=== PATIENT | male | born 1985 | race Two or more races ===

== ENCOUNTER 2021-05-13 09:46 | Outpatient (RCR) | payer OTHER, SELFPAY ==
--- NOTE | ~2021-05-13 | XR_ITS ---
EXAMINATION: XR CHEST 2 VIEWS CLINICAL INFORMATION: Preprocedure examination. COMPARISON: None. TECHNIQUE: Frontal and lateral views of the chest were obtained. FINDINGS: The heart, great vessels, pulmonary vasculature and mediastinum are normal. The lungs show no focal infiltrate, effusion or pneumothorax. There is no acute osseous abnormality. XR/XR chest 2V IMPRESSION: No active cardiopulmonary disease.
[2021-05-16 10:32] LABS: MANUAL DIFF FLAG NO
[2021-05-16 11:10] LABS: Basophils Absolute Auto 0.1 X10*3/uL (0.0-0.2); Basophils Percent Auto 0.9 % (0-2); Eosinophils Absolute Auto 0.4 X10*3/uL (0.0-0.4); Eosinophils Percent Auto 5.7 % (0-4); Hematocrit 37.5 % (42.0-52.0); Hemoglobin 12.7 g/dl (14.0-18.0); Imm Gran Abs Auto 0.05 X10*3/uL (0.00-0.03); Imm Gran Pct Auto 0.6 % (0.0-0.4); Lymphocytes Absolute Auto 2.5 X10*3/uL (1.2-4.9); Lymphocytes Percent Auto 31.7 % (20-40); Mean Corpuscular HGB Conc 33.9 g/dl (31.0-36.0); Mean Corpuscular Hemoglobin 30.3 pg (27.0-33.0); Mean Corpuscular Volume 89.5 fL (80.0-98.0); Mean Platelet Volume 12.6 fL (9.4-12.4); Monocytes Absolute Auto 0.5 X10*3/uL (0.1-1.2); Neutrophils Absolute Auto 4.2 x10*3/uL (2.0-8.3); Neutrophils Percent Auto 54.1 % (45-73); Platelet Count 220 X10*3/uL (160-400); Red Blood Count 4.19 X10*6/uL (4.60-5.80); White Blood Count 7.8 X10*3/uL (4.8-10.8)
[2021-05-16 11:28] LABS: Estimated Average Glucose 169 mg/dL; Hemoglobin A1c % 7.5 %
[2021-05-16 12:19] LABS: Erythrocyte Sedimentation Rate 11 MM/HR (0-15)
[2021-05-16 12:31] LABS: Anion Gap 16 (12-20); Blood Urea Nitrogen 31 mg/dL (9-16); C Reactive Protein 0.19 mg/dL (< or = 0.50); Carbon Dioxide 24 mmol/L (22-29); Chloride 103 mmol/L (96-108); Estimated Glomerular Filt Rate 42; Glucose Random 274 mg/dL (60-115); Potassium 5.6 mmol/L (3.3-5.1); Sodium 137 mmol/L (135-145)
== END 2021-06-14 16:04 | disposition home or self-care (01) ==
LOC: HO.WCC 09:46
PROVIDERS: PCP Nurse Practitioner Family; Visit Provider Physician Assistant
DX: E11.621 Type 2 diabetes mellitus with foot ulcer (principal); L97.512 Non-pressure chronic ulcer of other part of right foot with fat layer exposed; E11.65 Type 2 diabetes mellitus with hyperglycemia; E11.69 Type 2 diabetes mellitus with other specified complication; M86.471 Chronic osteomyelitis with draining sinus, right ankle and foot; L84 Corns and callosities; Z79.4 Long term (current) use of insulin
CPT/HCPCS: 11042; 36415; 71046; 80048; 83036; 84134; 85025; 85652; 86140; 99212; 99213

== ENCOUNTER 2022-01-10 10:59 | Outpatient (RCR) | payer OTHER, SELFPAY | END 2022-03-27 16:00 | disposition home or self-care (01) | LOC: HO.WCC 10:59 | PROVIDERS: PCP Nurse Practitioner Family; Visit Provider Physician Assistant | DX: E11.621 Type 2 diabetes mellitus with foot ulcer (principal); L97.412 Non-pressure chronic ulcer of right heel and midfoot with fat layer exposed; L97.512 Non-pressure chronic ulcer of other part of right foot with fat layer exposed | CPT/HCPCS: 11042; 15275; 16020; 16025; 99212; Q4186 ==

== ENCOUNTER 2022-05-19 07:56 | Outpatient (RCR) | payer OTHER, SELFPAY | END 2022-06-30 16:00 | disposition home or self-care (01) | LOC: HO.WCC 07:56 | PROVIDERS: PCP Nurse Practitioner Family; Visit Provider Physician Assistant | DX: Z09 Encounter for follow-up examination after completed treatment for conditions other than malignant neoplasm (principal); E11.22 Type 2 diabetes mellitus with diabetic chronic kidney disease; N18.9 Chronic kidney disease, unspecified; F12.90 Cannabis use, unspecified, uncomplicated; Z86.31 Personal history of diabetic foot ulcer | CPT/HCPCS: 11042; 99212 ==

== ENCOUNTER 2022-05-29 10:00 | Outpatient (RCR) | payer OTHER, SELFPAY | END 2022-06-12 13:51 | disposition home or self-care (01) | LOC: HO.PT 10:00 | PROVIDERS: PCP Nurse Practitioner Family; Visit Provider Nurse Practitioner Family | DX: M54.50 Low back pain, unspecified (principal) | CPT/HCPCS: 97110; 97162; 97530 ==

== ENCOUNTER 2022-10-29 14:07 | Outpatient (RCR) | payer OTHER, SELFPAY ==
--- NOTE | ~2022-10-29 | XR_ITS ---
EXAMINATION: XR FOOT, RIGHT CLINICAL INFORMATION: Great toe swelling. COMPARISON: None available. TECHNIQUE: AP, lateral, and oblique views of the right foot. FINDINGS: A comminuted, displaced fracture is seen of the shaft of the right great toe. There appears to be extension of the fracture pattern at the articular surface of the head of the proximal phalanx. There is adjacent soft tissue swelling No dislocation is seen. Boehler's angle is normal. There is no calcaneal spur. There are atherosclerotic calcifications. No focal soft tissue gas or foreign body is seen. XR/XR foot RT min 3V IMPRESSION: A comminuted fracture is noted of the shaft and head of the proximal phalanx of the right great toe, with fracture line extension into the articular surface at the interphalangeal joint. There is adjacent soft tissue swelling. A preliminary report was provided by the [facility] on 01/22/2023.
== END 2023-09-14 13:50 | disposition home or self-care (01) ==
LOC: HO.WCC 14:07
PROVIDERS: PCP Nurse Practitioner Family; Visit Provider Surgery
DX: E11.621 Type 2 diabetes mellitus with foot ulcer (principal); L97.522 Non-pressure chronic ulcer of other part of left foot with fat layer exposed; S91.104D Unspecified open wound of right lesser toe(s) without damage to nail, subsequent encounter; E11.22 Type 2 diabetes mellitus with diabetic chronic kidney disease; N18.9 Chronic kidney disease, unspecified; B35.3 Tinea pedis; Z79.4 Long term (current) use of insulin; Z79.899 Other long term (current) drug therapy
CPT/HCPCS: 11042; 15271; 15275; 73630; 97597; 99212; 99213; Q4186

== ENCOUNTER 2024-01-11 13:00 | Outpatient (RCR) | payer OTHER, SELFPAY | END 2024-01-15 14:05 | disposition home or self-care (01) | LOC: HO.WCC 13:00 | PROVIDERS: PCP Nurse Practitioner Family; Visit Provider Surgery | DX: E11.621 Type 2 diabetes mellitus with foot ulcer (principal); E11.620 Type 2 diabetes mellitus with diabetic dermatitis; B35.3 Tinea pedis; Z79.899 Other long term (current) drug therapy; L97.522 Non-pressure chronic ulcer of other part of left foot with fat layer exposed; E11.22 Type 2 diabetes mellitus with diabetic chronic kidney disease; N18.4 Chronic kidney disease, stage 4 (severe); E11.40 Type 2 diabetes mellitus with diabetic neuropathy, unspecified | CPT/HCPCS: 11042; 99212; 99213 ==

== ENCOUNTER 2024-01-27 14:56 | Outpatient (RCR) | payer OTHER, SELFPAY | END 2024-03-04 16:02 | disposition home or self-care (01) | LOC: HO.WCC 14:56 | PROVIDERS: PCP Nurse Practitioner Family; Visit Provider Surgery | DX: Z09 Encounter for follow-up examination after completed treatment for conditions other than malignant neoplasm (principal); E11.40 Type 2 diabetes mellitus with diabetic neuropathy, unspecified; Z86.31 Personal history of diabetic foot ulcer | CPT/HCPCS: 99213 ==

== ENCOUNTER 2024-06-28 13:30 | Outpatient (RCR) | payer OTHER, SELFPAY | END 2024-08-11 12:00 | disposition home or self-care (01) | LOC: HO.WCC 13:30 | PROVIDERS: PCP Nurse Practitioner Family; Visit Provider Surgery | DX: L97.522 Non-pressure chronic ulcer of other part of left foot with fat layer exposed (principal); L08.89 Other specified local infections of the skin and subcutaneous tissue; L85.3 Xerosis cutis; Z79.2 Long term (current) use of antibiotics | CPT/HCPCS: 11042; 87070; 87205; 97597; 99212; 99213 ==

== ENCOUNTER 2025-01-30 09:45 | Outpatient (RCR) | payer OTHER, SELFPAY | END 2025-01-30 16:45 | disposition home or self-care (01) | LOC: HO.WCC 09:45 | PROVIDERS: Visit Provider Surgery Surgical Oncology | DX: E11.65 Type 2 diabetes mellitus with hyperglycemia (principal); E11.40 Type 2 diabetes mellitus with diabetic neuropathy, unspecified; E11.22 Type 2 diabetes mellitus with diabetic chronic kidney disease; N18.4 Chronic kidney disease, stage 4 (severe); M21.271 Flexion deformity, right ankle and toes; M20.41 Other hammer toe(s) (acquired), right foot; Z79.4 Long term (current) use of insulin | CPT/HCPCS: 11042; 97597; 99202; 99212 ==